=== PATIENT | male | born 1980 | race Asian ===

== ENCOUNTER 2019-09-01 07:56 | Emergency (ER) | payer MEDICAID ==
[~2019-09-01] VITALS: Ht 167.6 cm; Wt 72.0 kg
[2019-09-01] MEDS ORDERED: BUTA1TAB23 PO (08:05)
--- NOTE | 2019-09-01 08:05 | PHYS DOC ---
Past Medical History Past Medical History: No Pertinent History Past Surgical History: No Surgical History Smoking Status: Never Smoker Alcohol Use: None Drug Use: None General Adult EDM: Chief Complaint: Headache HPI: HPI: Patient is a 39 year old male presents via EMS with report of headache and intermittent fever/chills over the last week. Patient recently tested positive for COVID19 on Thursday. Patient works at [employer] and multiple employees have tested positive for the virus. Reports has been treating headache and fever with Tylenol. Use of lang interpreter phone utilized as patient primarily speaks Nehemias Olvera. Review of Systems: Review of Systems: Constitutional: Reports fever, chills, and body aches Eyes: Denies redness or eye pain HENT: Denies nasal congestion or sore throat Respiratory: Denies cough or shortness of breath Cardiovascular: Denies chest pain or palpitations GI: Denies abdominal pain, nausea, or vomiting Musculoskeletal: Denies back pain or neck pain Integument: Denies rash or skin lesions Neurologic: Reports headache; denies focal weakness or sensory changes Complete systems were reviewed and found to be within normal limits, except as documented in this note. Physical Exam: PE: Constitutional: Well developed, well nourished, no acute distress, non-toxic appearance HENT: Normocephalic, atraumatic, oropharynx moist Eyes: Conjunctiva normal, no discharge Neck: Normal range of motion, no tenderness, supple, no meningeal signs Cardiovascular: Heart rate normal, regular rhythm Lungs & Thorax: Bilateral breath sounds clear to auscultation, no wheezing Abdomen: Soft, no tenderness Skin: Warm, dry, no erythema, no rash Extremities: No tenderness, ROM intact, no edema Neurologic: Alert and oriented X 3, normal motor function, normal sensory function, no focal deficits noted, gait stable Psychologic: Affect anxious, judgment normal EKG: EKG: [] Radiology/Procedures: Radiology/Procedures: [] Course & Med Decision Making: Course & Med Decision Making Patient with history of positive COVID-19 presents via EMS with report of headache. Patient also reports subjective fever and chills at home. Reports has been taking Tylenol. Patient neurologically intact. Patient was able to walk in from ambulance bay with steady gait and no acute distress. No meningeal signs appreciated. Patient is currently afebrile. Sats stable. Symptomatic treatment provided with IM ketorolac and Fioricet p.o. Patient stable for discharge with outpatient follow-up with PCP. Discussed findings and plan with patient, who acknowledges understanding and agreement. COVID-19 CRITERIA: The patient was evaluated during the global COVID-19 pandemic, and that diagnosis was suspected/considered upon their initial presentation. Their evaluation, treatment and testing was consistent with current guidelines for patients who present with complaints or symptoms that may be related to COVID-19. Flory Disclaimer: Flory Disclaimer: This electronic medical record was generated, in whole or in part, using a voice recognition dictation system. Departure Departure Impression: Primary Impression: Headache Qualified Codes: R51 - Headache Additional Impression: COVID-19 virus infection Disposition: 01 HOME, SELF-CARE Condition: STABLE Patient Instructions: Headache, FAQs, Viral Syndrome Additional Instructions: Please self quarantine until your symptoms have been resolved for 14 days. Treat fever with Tylenol. Increase fluid hydration. Scripts Albuterol Sulfate (Proair Hfa) 8.5 Gm Hfa.aer.ad 2 PUFF IH PRN Q4-6HRS PRN for wheezing for 21 Days, #1 INHALER 0 Refills Prov: REINALDO PAREDES DO 09/01/19 Butalb/Acetaminophen/Caffeine ([id number] [id number]) 1 Each Tablet 1 EACH PO Q6HRS PRN for HEADACHE, #14 TAB Prov: REINALDO PAREDES DO 09/01/19 COVID-19 Assessment: COVID-19 Patient Risks: Age 65 or older: No Sign of co-morbidity: No Exp to person + for COVID: Yes Exp to PUI: No Travel from affected area: No Lower respiratory symptoms: No Fever: Yes Other: Yes (Headache) PPE Use: Full PPE with N95 mask or PAPR: Yes REINALDO PAREDES DO September 01, 2019 08:05
[2019-09-01 08:09] VITALS: BP 132/75
[2019-09-01] MEDS: KETOROLAC 30 MG/ML VIAL. IM ONE (08:22)
[2019-09-01] MEDS: BUTALB/APAP/CAFEIN 50/325/40MG TABLET. PO ONE (08:22)
[2019-09-01] MEDS ORDERED: ALBU2.5V8 IH (09:35)
== END 2019-09-01 09:32 | disposition home or self-care (01) ==
LOC: ER 07:56
DX: R51 Headache (principal); U07.1 COVID-19
CPT/HCPCS: 96372; 99283; J1885

== ENCOUNTER 2019-09-21 06:52 | Emergency (ER) | payer MEDICAID ==
[~2019-09-21] VITALS: Ht 167.6 cm; Wt 73.0 kg
[~2019-09-21 06:52] MED LIST: ALBU2.5V8 IH; BUTA1TAB23 PO
[2019-09-21 07:42] VITALS: BP 117/77
[2019-09-21] MEDS ORDERED: ZOLP12.52 PO (07:46)
--- NOTE | 2019-09-21 07:47 | PHYS DOC ---
Past Medical History Past Medical History: No Pertinent History Past Surgical History: No Surgical History Smoking Status: Never Smoker Alcohol Use: None Drug Use: None General Adult EDM: Chief Complaint: Insomnia HPI: HPI: Patient is a 39-year-old male who presents with the inability to sleep. He has been on trazodone but this has not worked. He denies taking any stimulants such as caffeine or amphetamines. He says the trazodone helps him feel tired but does not help him fall asleep. [] Review of Systems: Review of Systems: Constitutional: Denies fever or chills. [] Psychiatric: Reports anxiety. [] Heart Score: Risk Factors: Risk Factors: DM, Current or recent (<one month) smoker, HTN, HLP, family history of CAD, obesity. Risk Scores: Score 0 - 3: 2.5% MACE over next 6 weeks - Discharge Home Score 4 - 6: 20.3% MACE over next 6 weeks - Admit for Clinical Observation Score 7 - 10: 72.7% MACE over next 6 weeks - Early Invasive Strategies Allergies: Allergies: Allergies Coded Allergies Type Severity Reaction Last Updated Verified No Known Drug Allergies 09/01/19 No Physical Exam: PE: Constitutional: Well developed, well nourished, no acute distress, non-toxic appearance. [] HENT: Normocephalic, atraumatic, bilateral external ears normal, oropharynx moist, no oral exudates, nose normal. [] Eyes: PERRLA, EOMI, conjunctiva normal, no discharge. [] Neck: Normal range of motion, no tenderness, supple, no stridor. [] Cardiovascular:Heart rate regular rhythm, no murmur [] Lungs & Thorax: Bilateral breath sounds clear to auscultation [] Abdomen: Bowel sounds normal, soft, no tenderness, no masses, no pulsatile masses. [] Skin: Warm, dry, no erythema, no rash. [] Back: No tenderness, no CVA tenderness. [] Extremities: No tenderness, no cyanosis, no clubbing, ROM intact, no edema. [] Neurologic: Alert and oriented X 3, normal motor function, normal sensory function, no focal deficits noted. [] Psychologic: Extremely anxious. [] EKG: EKG: [] Radiology/Procedures: Radiology/Procedures: [] Course & Med Decision Making: Course & Med Decision Making Pertinent Labs and Imaging studies reviewed. (See chart for details) [] Flory Disclaimer: Dragon Disclaimer: This electronic medical record was generated, in whole or in part, using a voice recognition dictation system. Departure Departure Impression: Primary Impression: Insomnia Qualified Codes: G47.00 - Insomnia, unspecified Disposition: HOME, SELF-CARE Condition: STABLE Referrals: NO PCP (PCP) Patient Instructions: Insomnia Additional Instructions: You will need to stop taking the trazodone. Scripts Zolpidem Tartrate (AMBIEN CR) 12.5 Mg Tab.mphase 12.5 MG PO PRN QHS PRN for INSOMNIA, #14 TAB.SR 0 Refills Prov: ELAINE DUNN DO 09/21/19 ELAINE DUNN DO Sep 21, 2019 07:47
== END 2019-09-21 08:11 | disposition home or self-care (01) ==
LOC: ER 06:52
DX: G47.00 Insomnia, unspecified (principal)
CPT/HCPCS: 99283

== ENCOUNTER 2020-02-04 10:49 | Emergency (ER) | payer MEDICAID ==
[~2020-02-04] VITALS: Ht 167.6 cm; Wt 75.4 kg
[~2020-02-04 10:49] MED LIST changes: +ZOLP12.52 PO
--- NOTE | 2020-02-04 11:48 | ED.ADGEN ---
Past Medical History Past Medical History: No Pertinent History Past Surgical History: No Surgical History Smoking Status: Never Smoker Alcohol Use: None Drug Use: None General Adult EDM: Chief Complaint: FEVER HPI: HPI: Patient is a 39 year old male who presents to the emergency department with complaints of hot and cold chills and headache. Patient reports that he was seen at the local health department yesterday for the same symptoms and had a COVID-19 test done but does not know the result of that. He reports that yesterday he had a runny nose with clear drainage but reports that that has since gone away. He denies any cough, nausea, vomiting, diarrhea, rash, sore throat, vision changes, dizziness, chest pain, palpitations, shortness of breath, abdominal pain, or ear pain. He currently denies any pain. He denies any known exposure to COVID-19. Patient states he has not measured his temperature he has only felt hot. Review of Systems: Review of Systems: Complete ROS is negative unless otherwise noted in HPI. Allergies: Allergies: Allergies Coded Allergies Type Severity Reaction Last Updated Verified No Known Drug Allergies 09/01/19 No Physical Exam: PE: See Above Constitutional: Well developed, well nourished, no acute distress, non-toxic appearance. [] HENT: Normocephalic, atraumatic, bilateral external ears normal, nose normal. [] Eyes: PERRLA, EOMI, conjunctiva normal, no discharge. [] Neck: Normal range of motion no stridor. [] Cardiovascular:Heart rate regular rhythm Lungs & Thorax: Respirations even and unlabored, no retractions, no respiratory distress Skin: Warm, dry, no erythema, no rash. [] Extremities: No cyanosis, ROM intact, no edema. [] Neurologic: Alert and oriented X 3, normal motor function, normal sensory function, no focal deficits noted. [] Psychologic: Affect normal, judgement normal, mood normal. [] Current Patient Data: Labs: Laboratory Tests Test 02/04/20 11:30 Influenza Type A Antigen Negative (NEGATIVE) Influenza Type B Antigen Negative (NEGATIVE) Vital Signs: Vital Signs Date Time Temp Pulse Resp B/P (MAP) Pulse Ox O2 Delivery O2 Flow Rate FiO2 02/04/20 11:30 98.0 91 16 98 Room Air 98.0 02/04/20 10:57 122/57 (78) EKG: EKG: [] Heart Score: Risk Factors: Risk Factors: DM, Current or recent (<one month) smoker, HTN, HLP, family history of CAD, obesity. Risk Scores: Score 0 - 3: 2.5% MACE over next 6 weeks - Discharge Home Score 4 - 6: 20.3% MACE over next 6 weeks - Admit for Clinical Observation Score 7 - 10: 72.7% MACE over next 6 weeks - Early Invasive Strategies Radiology/Procedures: Radiology/Procedures: [] Course & Med Decision Making: Course & Med Decision Making Pertinent Labs and Imaging studies reviewed. (See chart for details) 39-year-old male presented to the emergency department with complaints of hot and cold chills and body aches for the last 2 days. Rapid influenza testing was negative, the patient's vital signs throughout his stay were unremarkable. The patient was afebrile throughout his visit. COVID-19 test result is pending. Patient was instructed to follow the provided COVID-19 quarantine instructions advised the patient that COVID-19 test results will not be available for at least 2 days. I encouraged the patient to take Tylenol and ibuprofen as needed for fever/body aches. Return to the ER symptoms worsen and he develops shortness of breath. Patient verbalized an understanding of home care, medications, follow-up, and return to ED instructions and was in agreement with the plan of care. COVID-19 CRITERIA: The patient was evaluated during the global COVID-19 pandemic, and that diagnosis was suspected/considered upon their initial presentation. Their evaluation, treatment and testing was consistent with current guidelines for patients who present with complaints or symptoms that may be related to COVID-19. [] Dragon Disclaimer: Dragon Disclaimer: This electronic medical record was generated, in whole or in part, using a voice recognition dictation system. Departure Departure Impression: Primary Impression: Generalized body aches Additional Impression: Fever and chills Disposition: 01 DC HOME SELF CARE/HOMELESS Condition: STABLE Referrals: NO PCP (PCP) Patient Instructions: Fever, Adult, [id number] Additional Instructions: Alternate Tylenol or ibuprofen as needed for pain/fever. Increase clear fluids. Follow the quarantine instructions listed below, return to the ER if symptoms worsen or you develop shortness of breath. You have been tested for or diagnosed with COVID-19. It is an infection caused by a new type of coronavirus. COVID-19 will cause cold-like or mild flu symptoms in most. It can cause more severe symptoms like problems breathing in some. There is no treatment for COVID-19. The body will clear the infection over time. Self-care will help to ease discomfort. Steps to Take: Self-Care Rest as needed. Healthy habits may help you feel better. Steps include: Choose healthy foods including fruits and vegetables. Drink water throughout the day. Get plenty of sleep each night. If you smoke, try to quit. It may ease breathing. Avoid alcohol. Keep Others Healthy The virus can spread to others. Droplets are released every time you sneeze or cough. The droplets can get into the mouth, nose, or eyes of people near you and lead to infection. To lower the chances of spreading COVID-19 to others: Stay at home until your doctor has said it is safe to leave. If you tested positive this will mean staying isolated until both of the following are true: At least 7 days have passed since the start of illness. You are free of fever for at least 72 hours without the use of medicine. During this time: - Avoid public areas, events, or transportation. Do not return to work or school until your doctor has said it is safe to do so. - Call ahead if you need to go to a medical center. Let them know you may have COVID-19. It will help them guide you where to go. They may also ask you to wear a facemask when you come to the office. - If you call for emergency medical services, let them know you may have COVID- 19. While at home: - Try to avoid close contact with others. Stay about 6 feet away. - If possible, spend most of your time in a separate room from others. - Use a face mask if you will be in close contact with others such as sharing a room or vehicle. - Have someone wipe down common surfaces in the home. Use household stripper and printer every day on areas like doorknobs, counters, or sinks. - Cough or sneeze into a tissue. Throw the tissue away right after use. If a tissue is not available, cough or sneeze into your elbow. - Wash your hands often. Wash them after sneezing or coughing. Use soap and water and wash for at least 20 seconds. Alcohol based hand cleaner signs can be used if soap and water is not available. - Do not prepare food for others. Avoid sharing personal items like forks, spoons, or toothbrushes. - Avoid close contact with pets while you are sick. There is no evidence of the virus passing to pets. This is a safety step until more is known about this virus. Isolation can be frustrating. Social interaction can help. Keep in touch with friends and family through phone and tech options. You can still interact with others in your home, just keep a safe distance of about 6 feet. Follow-up: Your doctors office will check in with you to see if there are any changes in your health. You may be asked to keep track of symptoms to share with them. They will also let you know when you are clear to be in public again. Problems to Look Out For: Contact your doctor if your recovery is not going as you expect. Get emergency care if you have problems such as: - Trouble breathing - Nonstop chest pain or pressure - Changes in awareness, confusion, or problems waking - Lips or face have bluish color - Worsening of symptoms If you think you have an emergency, call for emergency medical services right away. As taken from [facility] COVID-19 Assessment: COVID-19 Patient Risks: Age 65 or older: No Sign of co-morbidity: No Exp to person + for COVID: No Exp to PUI: No Travel from affected area: No Lower respiratory symptoms: No Fever: Yes (Reported) PPE Use: Full PPE with N95 mask or PAPR: Yes Problem Qualifiers LEE ALVA APRN Feb 04, 2020 11:48
[2020-02-04 12:22] LABS: INFLUENZA A PATIENT NEGATIVE (NEGATIVE); INFLUENZA B PATIENT NEGATIVE (NEGATIVE)
[2020-02-04 13:01] VITALS: BP 122/67
== END 2020-02-04 13:01 | disposition home or self-care (01) ==
LOC: ER 10:49
DX: M79.10 Myalgia, unspecified site (principal); R50.9 Fever, unspecified; Z20.828 Contact with and (suspected) exposure to other viral communicable diseases; R51.9 Headache, unspecified; R09.81 Nasal congestion
CPT/HCPCS: 87804; 99283; C9803; U0003